=== PATIENT | male | born 1985 | race Two or more races ===

== ENCOUNTER 2017-03-09 09:33 | Emergency (ER) | payer OTHER ==
[2017-03-09] MEDS: CYCLOBENZAPRINE 10 MG TAB PO (10:37)
[2017-03-09] MEDS: KETOROLAC 60 MG/2 ML VIAL (J1885) IM (10:38)
== END 2017-03-09 10:55 | disposition home or self-care (01) ==
LOC: M ED 09:33
DX: M62.830 Muscle spasm of back (principal); Z88.8 Allergy status to other drugs, medicaments and biological substances; Z87.891 Personal history of nicotine dependence
CPT/HCPCS: J1885

== ENCOUNTER → 2018-05-09 | Outpatient (CLI) | payer OTHER ==
[~2018-05-09] MED LIST: IBUP1TAB7 PO; NAPR-885 PO; PROHANCE 279.3MG/ML 15ML VIAL (A9576) As Ordered ONE; ROBA500T PO
--- NOTE | 2018-05-12 07:39 | REP ---
MR Brain without and with contrast History: Headache Contrast: ProHance 13 ml There are no areas of abnormal signal intensity in the brain parenchyma . There is no intraparenchymal hemorrhage, infarct , mass or midline shift. There is a enhancement. The ventricular system normal in appearance. A small arachnoid cyst is present in the left middle cranial fossa. The arachnoid cyst measures 2 cm in transverse by 1 cm in AP dimensions . There is very minimal mass effect on the adjacent left temporal lobe. There is no subdural fluid collection. Mucosal thickening is present in the right maxillary sinus. Impression: Small 2 cm left middle cranial fossa arachnoid cyst. Electronically Signed by Alejandro Alfonso MD 05/09/2018 04:42 P
--- NOTE | 2018-05-12 07:39 | REP ---
MRA carotids without contrast History: Headache Unenhanced 2-D and 3-D [id number] MR angiography were performed at the level of the carotid bifurcations. The distal common carotid arteries and origins of the external and internal carotid arteries are normal. The vertebral arteries are patent. The left vertebral artery is dominant. There are no atherosclerotic lesions. Impression: Normal MRA carotids. Electronically Signed by Alejandro Alfonso MD 05/09/2018 04:20 P
--- NOTE | 2018-05-12 07:39 | REP ---
MRA Brain without contrast History: Headache 3-D [id number] MR angiography was performed at the level of the [place]. There is no aneurysm or arteriovenous malformation or atherosclerotic lesion. Major intracranial vessels are patent. The left vertebral artery is dominant. Impression: Normal MRA brain. Electronically Signed by Alejandro Alfonso MD 05/09/2018 04:17 P
== END ==
LOC: M RAD 15:10
PROVIDERS: ATTEND Emergency Medicine
DX: G93.0 Cerebral cysts (principal); R53.83 Other fatigue; H53.8 Other visual disturbances; Z80.8 Family history of malignant neoplasm of other organs or systems
CPT/HCPCS: 70544; 70547; 70553; A9576